=== PATIENT | male | born 1975 | race Caucasian/White ===

== ENCOUNTER 2023-03-15 17:50 | Emergency (ER) | payer BC ==
[2023-03-15 18:12] VITALS: BP 148/101
[2023-03-15] MEDS ORDERED: Sodium Chloride 0.9% 1,000 ML IV STA ×2 (18:36)
[2023-03-15] MEDS ORDERED: Sodium Chloride 0.9% 10 ML Syringe FLUSH PRN (18:36)
[2023-03-15] MEDS ORDERED: Sodium Chloride 0.9% 2.5 ML Syringe FLUSH PRN (18:36)
[2023-03-15 19:06] LABS: BASOPHILS ABSOLUTE AUTO 0.05 K/uL (0.00-0.20); BASOPHILS PERCENT AUTO 0.5 % (0.0-1.0); EOSINOPHILS ABSOLUTE AUTO 0.22 K/uL (0.00-0.45); EOSINOPHILS PERCENT AUTO 2.1 % (0.0-6.0); HEMOGLOBIN 16.5 g/dL (14.0-18.0); IMMATURE GRAN ABSOLUTE AUTO 0.02 K/uL (0.00-0.05); IMMATURE GRAN PERCENT AUTO 0.2 % (0.0-0.4); LYMPHOCYTES ABSOLUTE AUTO 2.62 K/uL (1.00-4.80); LYMPHOCYTES PERCENT AUTO 24.4 % (24.0-44.0); MEAN CORPUSCULAR HEMOGLOBIN 29.9 pg (28.0-32.0); MEAN CORPUSCULAR HGB CONC 35.1 g/dL (32.0-36.0); MEAN CORPUSCULAR VOLUME 85.3 fL (83.0-99.0); MEAN PLATELET VOLUME 9.9 fL (9.4-12.4); MONOCYTES ABSOLUTE AUTO 0.72 K/uL (0.00-0.80); MONOCYTES PERCENT AUTO 6.7 % (0.0-8.0); NEUTROPHILS ABSOLUTE AUTO 7.09 K/uL (1.80-7.70); NEUTROPHILS PERCENT AUTO 66.1 % (41.0-71.0); PLATELET COUNT,PLT 281 K/uL (150-400); RED BLOOD CELL COUNT 5.51 M/uL (4.52-5.90); WHITE BLOOD CELL COUNT,WBC 10.72 K/uL (3.9-11.3)
[2023-03-15 19:13] LABS: PHOSPHORUS 4.5 mg/dL (2.6-4.7)
[2023-03-15 19:18] LABS: ALBUMIN 4.2 g/dL (3.4-5.0); BILIRUBIN TOTAL 0.4 mg/dL (0.2-1.0); CALCIUM 9.5 mg/dL (8.5-10.1); CARBON DIOXIDE,CO2 26.9 mmol/L (21.0-32.0); CREATININE 0.9 mg/dL (0.8-1.3); EST CRCL DRUG DOSING (CG) 100.28 mL/min; HEMOGLOBIN A1C 9.2 %; POTASSIUM,K 3.8 mmol/L (3.5-5.1); PROTEIN TOTAL,TP 8.3 g/dL (6.4-8.2)
[2023-03-15 20:18] VITALS: PULSE 68
== END 2023-03-15 20:15 | disposition home or self-care (01) ==
LOC: MW.ED 17:50
DX: E11.65 Type 2 diabetes mellitus with hyperglycemia (principal); Z79.84 Long term (current) use of oral hypoglycemic drugs
CPT/HCPCS: 36415; 80053; 82009; 82947; 83036; 83690; 83735; 84100; 85025; 96360; 99283; J7030